=== PATIENT | male | born 1995 | race Caucasian/White ===

== ENCOUNTER 2018-04-25 14:26 | Emergency (ER) | payer SELFPAY ==
[~2018-04-25] VITALS: Ht 185.4 cm; Wt 82.0 kg
[2018-04-25 14:27] VITALS: BP 154/79
[2018-04-25] MEDS ORDERED: ONDANSETRON ODT 4 MG PO ONE (15:00)
[2018-04-25] MEDS ORDERED: SODIUM CHLORIDE FLUSH 10ML SYR IVF ONE (15:00)
[2018-04-25] MEDS ORDERED: FAMOTIDINE 20 MG/2 ML IVP ONE (15:00)
[2018-04-25 15:04] LABS: BASOPHILS # (AUTO) 0.05 x10^3/uL (0-0.3); BASOPHILS % (AUTO) 0 % (0-1); EOSINOPHILS % (AUTO) 4 % (1-7); LYMPHOCYTES # (AUTO) 2.77 x10^3/uL (1-6.1); LYMPHOCYTES % (AUTO) 26 % (22-44); MD NO; MEAN CORPUSCULAR HEMOGLOBIN 31.9 pg (27.5-34.5); MEAN PLATELET VOLUME 8.1 fL (7.4-10.4); MONOCYTES # (AUTO) 0.96 x10^3/uL (0-1.4); MONOCYTES % (AUTO) 9 % (2-9); NEUTROPHILS # (AUTO) 6.48 x10^3/uL (1.8-8.0); NEUTROPHILS % (AUTO) 61 % (42-75); PLATELET COUNT 297 x10^3/uL (130-400); RED CELL DISTRIBUTION WIDTH 13.4 % (9.4-14.8)
[2018-04-25] MEDS ORDERED: ONDANSETRON ODT 4 MG ONE (15:06)
[2018-04-25] MEDS ORDERED: FAMOTIDINE 20 MG/2 ML ONE (15:06)
[2018-04-25 15:23] LABS: ALBUMIN 4.3 g/dL (3.4-5.0); ANION GAP 9 mmol/L (5-15); CALCIUM 9.3 mg/dL (8.5-10.1); CHLORIDE 102 mmol/L (98-107)
[2018-04-25 15:29] LABS: ALANINE AMINOTRANSFERASE 36 U/L (12-78); ALKALINE PHOSPHATASE 80 U/L (45-117); BILIRUBIN,TOTAL 0.5 mg/dL (0.2-1.0); CREATININE 1.12 mg/dL (0.7-1.3); TOTAL PROTEIN 8.2 g/dL (6.4-8.2)
== END 2018-04-25 16:59 | disposition home or self-care (01) ==
LOC: ED 16:53
DX: K29.01 Acute gastritis with bleeding (principal)
CPT/HCPCS: 36415; 76700; 80053; 83690; 85025; 96374; 99285; Q0162; S0028